=== PATIENT | male | born 1980 | race American Indian/Alaskan Native ===

== ENCOUNTER 2020-10-31 12:12 | Emergency (ER) | payer SELFPAY ==
[2020-10-31 12:51] VITALS: BP 157/99
--- NOTE | 2020-10-31 12:57 | Emergency Department Report ---
ED Back Pain/Injury HPI - General Chief Complaint: Back Pain/Injury Stated Complaint: BACK PAIN Time Seen by Provider: 10/31/20 12:32 Source: patient Limitations: No Limitations - History of Present Illness Initial Comments: Patient is a 40-year-old male presents emergency room with complaints of low back pain that began 2 weeks ago. He states that the pain radiates down his b ilateral lower extremities. 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 He states his pain is worse with movement. He denies any fall or injury. He denies any fever, nausea, vomiting, diarrhea, chest pain, shortness of breath, abdominal pain, numbness, weakness, bowel or bladder incontinence. He denies any steroid use, IV drug use, history of cancer. Past medical history of hypertension and states that he does take his medication but is not sure what he is taking. No allergies to medications. He is a smoker. - Related Data Previous Rx's Medication Instructions Recorded Last Taken Type Menthol/Camphor [[place] 1 applicatio TP BID #18 oint...g. 10/31/20 Unknown Rx Ointment] Naproxen 375 mg PO BID PRN #20 tablet 10/31/20 Unknown Rx methOCARBAMOL [Robaxin TAB] 500 mg PO BID PRN #20 tab 10/31/20 Unknown Rx predniSONE [Deltasone] 40 mg PO QDAY 5 Days #10 tab 10/31/20 Unknown Rx Allergies Allergy/AdvReac Type Severity Reaction Status Date / Time No Known Allergies Allergy Unverified 10/31/20 12:49 ED Review of Systems ROS: Stated complaint: BACK PAIN Other details as noted in HPI Comment: All other systems reviewed and negative ED Past Medical Hx - Past Medical History Previous Medical History?: Yes Hx Hypertension: Yes - Surgical History Past Surgical History?: No - Social History Smoking Status: Current Every Day Smoker Substance Use Type: Alcohol - Medications Home Medications: Home Medications Medication Instructions Recorded Confirmed Last Taken Type Menthol/Camphor [[place] 1 applicatio TP BID #18 oint...g. 10/31/20 Unknown Rx Ointment] Naproxen 375 mg PO BID PRN #20 tablet 10/31/20 Unknown Rx methOCARBAMOL [Robaxin TAB] 500 mg PO BID PRN #20 tab 09/16/21 Unknown Rx predniSONE [Deltasone] 40 mg PO QDAY 5 Days #10 tab 10/31/20 Unknown Rx ED Physical Exam - General Limitations: No Limitations General appearance: alert, in no apparent distress - Head Head exam: Present: atraumatic, normocephalic - Eye Eye exam: Present: normal appearance - ENT ENT exam: Present: mucous membranes moist - Neck Neck exam: Present: normal inspection, full ROM. Absent: tenderness, meningismus - Respiratory Respiratory exam: Present: normal lung sounds bilaterally. Absent: respiratory distress, wheezes, rales, rhonchi, stridor, chest wall tenderness, accessory muscle use, decreased breath sounds, prolonged expiratory - Cardiovascular Cardiovascular Exam: Present: regular rate, normal rhythm, normal heart sounds. Absent: systolic murmur, diastolic murmur, rubs, gallop - Back Exam Back exam: Present: normal inspection, full ROM, paraspinal tenderness (bilateral lumbar paraspinal muscular ttp, no midline C-spine, T-spine or L- spine ttp, no step offs, no deformities, no skin changes, no crepitus, pain with SLR of the BLE). Absent: vertebral tenderness - Neurological Exam Neurological exam: Present: alert, oriented X3, CN II-XII intact, normal gait. Absent: motor sensory deficit - Psychiatric Psychiatric exam: Present: normal affect, normal mood - Skin Skin exam: Present: warm, dry, intact ED Course Vital Signs 10/31/20 12:50 Temperature 97.9 F Pulse Rate 68 Respiratory 18 Rate Blood Pressure 157/99 [Right] O2 Sat by Pulse 98 Oximetry ED Medical Decision Making - Medical Decision Making Patient is a 40-year-old male presents emergency room with complaints of low back pain that began 2 weeks ago. He states that the pain radiates down his bilateral lower extremities. 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 He states his pain is worse with movement. He denies any f all or injury. He denies any fever, nausea, vomiting, diarrhea, chest pain, shortness of breath, abdominal pain, numbness, weakness, bowel or bladder incontinence. He denies any steroid use, IV drug use, history of cancer. Past medical history of hypertension and states that he does take his medication but is not sure what he is taking. No allergies to medications. He is a smoker. Vitals are stable. On exam:bilateral lumbar paraspinal muscular ttp, no midline C-spine, T-spine or L-spine ttp, no step offs, no deformities, no skin changes, no crepitus, pain with SLR of the BLE. Symptoms and examination appear likely consistent with sciatica versus lumbar radiculopathy. Patient has no red flag warning signs of back pain, no trauma, no unexplained weight loss, no neuro deficits, age is not greater than 50, no fever, no IV drug use, no steroid use, no history of cancer, no saddle numbness. Patient given prescription for medication. Advised patient Please use medication as prescribed. May use ice pack, heating pad, rest, epsom salt bath. Do not use heat or ice while using [place]. Follow-up with a primary care doctor. Follow-up with orthopedic/spine doctor. Return to emergency room for any new or worsening symptoms. Critical care attestation.: If time is entered above; I have spent that time in minutes in the direct care of this critically ill patient, excluding procedure time. ED Disposition Clinical Impression: Back pain Qualifiers: Back pain location: low back pain Chronicity: acute Back pain laterality: bilateral Sciatica presence: with sciatica Sciatica laterality: bilateral sciatica Qualified Code(s): M54.42 - Lumbago with sciatica, left side Disposition: 01 HOME / SELF CARE / HOMELESS Is pt being admited?: No Does the pt Need Aspirin: No Condition: Stable Instructions: Sciatica Additional Instructions: Please use medication as prescribed. May use ice pack, heating pad, rest, epsom salt bath. Do not use heat or ice while using [place] balm. Follow-up with a primary care doctor. Follow-up with orthopedic/spine doctor. Return to emergency room for any new or worsening symptoms. Prescriptions: predniSONE [Deltasone] 40 mg PO QDAY 5 Days #10 tab Naproxen 375 mg PO BID PRN #20 tablet PRN Reason: pain methOCARBAMOL [Robaxin TAB] 500 mg PO BID PRN #20 tab PRN Reason: muscle spasm/pain Menthol/Camphor [[place] Ointment] 1 applicatio TP BID #18 oint...g. Referrals: NINA CHAVEZ II, MD [Staff Physician] - 3-5 Days [facility] [Provider Group] - 3-5 Days your, primary care doctor [Other] - 3-5 Days Forms: Work/School Release Form(ED) Time of Disposition: 12:56 Print Language: BELIZEAN
== END 2020-10-31 13:22 | disposition home or self-care (01) ==
LOC: ED 12:12
DX: M54.5 Low back pain (principal); I10 Essential (primary) hypertension; F17.200 Nicotine dependence, unspecified, uncomplicated; F10.20 Alcohol dependence, uncomplicated
CPT/HCPCS: 99281

== ENCOUNTER 2021-04-03 23:47 | Emergency (ER) | payer SELFPAY ==
[2021-04-04 01:38] VITALS: BP 145/91
[2021-04-04] MEDS ORDERED: AMOXICILLIN/K CLAV 875/125MG TAB PO ONE (03:46)
[2021-04-04] MEDS ORDERED: traMADol 50 MG TAB PO ONE (03:46)
--- NOTE | 2021-04-04 04:14 | Emergency Department Report ---
ED General Adult HPI - General Chief complaint: Dental/Oral Stated complaint: TOOTH/HEADACHE Time Seen by Provider: 04/04/21 03:46 Source: patient Mode of arrival: Ambulatory Limitations: No Limitations - History of Present Illness Initial comments: Patient 40-year-old -[place] male who presents with dental abscess to right upper tooth. Patient states swelling has improved however pain is described as aching throbbing for the past week. This is an acute on chronic problem for this patient. There is no fevers no chills no throat or ear pain is been no nausea no vomiting no dizziness or lightheadedness. Patient is tolerating p.o. intake. Severity scale (0 -10): 6 - Related Data Previous Rx's Medication Instructions Recorded Last Taken Type Menthol/Camphor [[place] 1 applicatio TP BID #18 oint...g. 10/31/20 Unknown Rx Ointment] Naproxen 375 mg PO BID PRN #20 tablet 10/31/20 Unknown Rx methOCARBAMOL [Robaxin TAB] 500 mg PO BID PRN #20 tab 10/31/20 Unknown Rx predniSONE [Deltasone] 40 mg PO QDAY 5 Days #10 tab 10/31/20 Unknown Rx Amoxicillin [Trimox CAP] 500 mg PO Q8H 7 Days #21 capsule 04/04/21 Unknown Rx Chlorhexidine Mouthwash [Peridex] 15 ml MM BID #1 bottle 04/04/21 Unknown Rx traMADoL [Ultram] 50 mg PO Q6HR PRN #12 tablet 04/04/21 Unknown Rx Allergies Allergy/AdvReac Type Severity Reaction Status Date / Time No Known Allergies Allergy Unverified 10/31/20 12:49 ED Review of Systems ROS: Stated complaint: TOOTH/HEADACHE Other details as noted in HPI Constitutional: denies: chills, fever Eyes: denies: eye pain, eye discharge, vision change ENT: dental pain Respiratory: denies: cough, shortness of breath, wheezing Cardiovascular: denies: chest pain, palpitations Endocrine: no symptoms reported Gastrointestinal: denies: abdominal pain, nausea, diarrhea Genitourinary: denies: urgency, dysuria Musculoskeletal: denies: back pain, joint swelling, arthralgia Skin: denies: rash, lesions Neurological: denies: headache, weakness, paresthesias Psychiatric: denies: anxiety, depression Hematological/Lymphatic: denies: easy bleeding, easy bruising ED Past Medical Hx - Past Medical History Previous Medical History?: Yes Hx Hypertension: Yes - Social History Smoking Status: Current Every Day Smoker Substance Use Type: Alcohol - Medications Home Medications: Home Medications Medication Instructions Recorded Confirmed Last Taken Type Menthol/Camphor [[place] 1 applicatio TP BID #18 oint...g. 10/31/20 Unknown Rx Ointment] Naproxen 375 mg PO BID PRN #20 tablet 10/31/20 Unknown Rx methOCARBAMOL [Robaxin TAB] 500 mg PO BID PRN #20 tab 10/31/20 Unknown Rx predniSONE [Deltasone] 40 mg PO QDAY 5 Days #10 tab 10/31/20 Unknown Rx Amoxicillin [Trimox CAP] 500 mg PO Q8H 7 Days #21 capsule 04/04/21 Unknown Rx Chlorhexidine Mouthwash [Peridex] 15 ml MM BID #1 bottle 04/04/21 Unknown Rx traMADoL [Ultram] 50 mg PO Q6HR PRN #12 tablet 04/04/21 Unknown Rx ED Physical Exam - General Limitations: No Limitations General appearance: alert, in no apparent distress - Head Head exam: Present: normocephalic, normal inspection - Eye Eye exam: Present: PERRL, EOMI - ENT ENT exam: Present: normal orophraynx, mucous membranes moist - Expanded ENT Exam Expanded Teeth exam: Present: dental caries, dental tenderness # (28) - Neck Neck exam: Present: normal inspection, full ROM. Absent: tenderness, lymphadenopathy - Respiratory Respiratory exam: Present: normal lung sounds bilaterally. Absent: respiratory distress, wheezes, stridor, chest wall tenderness - Cardiovascular Cardiovascular Exam: Present: regular rate, normal rhythm, normal heart sounds. Absent: systolic murmur, diastolic murmur, rubs, gallop - Rectal Rectal exam: Present: deferred - exam: Absent: urethral discharge - Extremities Exam Extremities exam: Present: normal inspection, full ROM - Back Exam Back exam: Present: normal inspection - Neurological Exam Neurological exam: Present: alert, altered, oriented X3, CN II-XII intact, normal gait. Absent: reflexes normal - Psychiatric Psychiatric exam: Present: normal affect, normal mood - Skin Skin exam: Present: warm, dry, intact, normal color. Absent: rash ED Course Vital Signs 04/04/21 04/04/21 01:36 03:59 Temperature 98.5 F Pulse Rate 72 Respiratory 20 14 Rate Blood Pressure 145/91 [Right] O2 Sat by Pulse 97 Oximetry ED Medical Decision Making - Medical Decision Making This is a dental abscess with no trismus. Patient is tolerating p.o. intake there is mild gum erythema and swelling there is no facial swelling airway is patent there is no stridor no wheezing. There is no fevers no chills no nausea no vomiting. Patient will be DC'd home in stable condition at this time. Patient was follow-up with dentist in 2 to 3 days. Patient given instructions to return to emergency department should symptoms worsen. Patient verbalized agreement and understanding of same patient DC'd home in stable condition at this time. Critical care attestation.: If time is entered above; I have spent that time in minutes in the direct care of this critically ill patient, excluding procedure time. ED Disposition Clinical Impression: Dental abscess Disposition: 01 HOME / SELF CARE / HOMELESS Is pt being admited?: No Does the pt Need Aspirin: No Condition: Stable Instructions: Dental Abscess Additional Instructions: Follow-up with your dentist in 2 to 3 days. Take medications as prescribed. Return to emergency department should symptoms worsen. Prescriptions: Chlorhexidine Mouthwash [Peridex] 15 ml MM BID #1 bottle Amoxicillin [Trimox CAP] 500 mg PO Q8H 7 Days #21 capsule traMADoL [Ultram] 50 mg PO Q6HR PRN #12 tablet PRN Reason: Pain Referrals: [facility] [Provider Group] - 3-5 Days [facility] [Outside] - 3-5 Days Forms: Work/School Release Form(ED) Time of Disposition: 04:34
== END 2021-04-04 05:07 | disposition home or self-care (01) ==
LOC: ED 23:47
DX: K04.7 Periapical abscess without sinus (principal); I10 Essential (primary) hypertension; F17.200 Nicotine dependence, unspecified, uncomplicated
CPT/HCPCS: 99282